=== PATIENT | male | born 1960 | race Caucasian/White ===

== ENCOUNTER → 2017-04-21 08:01 | Outpatient (CLI) | payer BC, SELFPAY ==
--- NOTE | 2017-04-21 08:07 | RAD_ITS ---
STUDY: AIR-CONTRAST UPPER GI SERIES. REASON FOR EXAM: Male, 56 years old. Dysphagia. FLUOROSCOPY TIME (if supplied): (0:37) minutes/seconds TECHNIQUE: The patient ingested barium. Multiple images of the esophagus stomach and duodenum were obtained. COMPARISON: None. FINDINGS: The esophagus is unremarkable. There is no evidence of obstruction. No mass lesion is seen. The stomach and duodenum are unremarkable. RAD/Upper GI w/BA Swallow IMPRESSION: Unremarkable air contrast upper GI series. Electronically Signed: Uriah Wick MD at 9:50 EST Tel [phone], Service support ,
== END ==
PROVIDERS: Visit Provider Surgery
DX: K20.0 Eosinophilic esophagitis (principal); R13.10 Dysphagia, unspecified
CPT/HCPCS: 74246

== ENCOUNTER 2017-05-02 06:02 | Day surgery (SDC) | payer BC, SELFPAY ==
[2017-05-02] VITALS (15 sets, daily range): BP systolic 140–166; BP diastolic 94–117; PULSE 55–80; RESP 14–18; TEMP 36.1; O2SAT 97–100; BMI 26.7
--- NOTE | 2017-05-02 | IMM_PTH ---
PATIENT: AMANDA HEWITT Jr. LOC: EN U#:[id number] AGE/SX: 56/M ROOM: RE05/02/[address]: Dr. Zafar Armstrong MD : 1960 BED: DIS: 05/02/2017 SPEC #: [id number] RECD: 05/03/17 13:32 STATUS: ANAHY RERose #: [id number] DALIA: 05/02/17 00:[address]: Zafar Armstrong DEPT: IMMUNOHISTOCHEMISTRY RECD BY: Ayaka Bailey ENTERED: 05/03/17 13:33 SP TYPE: IMMUNO OT DR: No Primary Care Phys Tissues: A - Stomach, NOS Procedures: H Pylori (initial) PHYSICIAN & INSTITUTION [place] [id number] SPECIMEN INFORMATION: Tissue Source: A ? Antral biopsy Clinical Info: Dysphagia Specimen Number: [id number] CPT code: 68581 METHODOLOGY: Deparaffinized sections of prefer/formalin-fixed tissue or PAP/DQ stained slides are incubated with monoclonal/polyclonal antibodies/oligonucleotide probes. Localization is made via biotin free immunoperoxidase method. Appropriate controls are performed and reacted as expected. Results on target cell population are indicated in the following table: RESULTS: ANTIBODY / CLONE RESULT Block A H Pylori (polyclonal) negative These tests were developed and their performance characteristics determined by [facility]. They may not have been cleared or approved by the U.S. Food and Drug Administration. The FDA has determined that such clearance or approval is not necessary. INTERPRETATION: A. Antral biopsy: Negative for Helicobacter pylori organisms. AM:lisseth 05/04/17
--- NOTE | 2017-05-02 07:45 | EGD_PTH ---
PATIENT: AMANDA HEWITT Jr. LOC: [facility] U#:[id number] AGE/SX: 56/M ROOM: RE05/02/[address]: Dr. Zafar Armstrong MD : 1960 BED: DIS: 05/02/2017 SPEC #: [id number] RECD: 05/02/17 12:41 STATUS: ANAHY MILADY #: [id number] DALIA: 05/02/17 07:[address]: Zafar Armstrong DEPT: SURGICAL PATHOLOGY RECD BY: Colton Meadows ENTERED: 05/02/17 13:53 SP TYPE: EGD BIOPSY OTHR DR: Ying Primary Care Phys Tissues: A - Gastric mucous membrane B - Duodenum, NOS C - Esophageal mucous membrane D - Esophageal mucous membrane Procedures: Special Stain Group II Surgery Specimen Level IV Alcian Blue/PAS (control) HEADER OPERATION: EGD with dilatation PRE-OP DIAGNOSIS: Dysphagia TISSUE SUBMITTED: A ? Antral biopsy, B ? Duodenal biopsy, C ? Distal esophagus biopsy, D ? Mid esophagus biopsy MICROSCOPIC DIAGNOSIS A. Gastric antrum, biopsy: Gastritis. B. Duodenum, biopsy: Minimal nonspecific chronic inflammation. C. Distal esophagus, biopsy: Fragments of benign esophageal mucosa with changes of eosinophilic esophagitis. No evidence of Walker?s specialized epithelium. D. Mid esophagus, biopsy: Changes consistent with eosinophilic esophagitis. AM:lisseth 05/03/17 COMMENT A. The results of immunohistochemistry for Helicobacter pylori will be reported separately ([id number]). B. Alcian blue/PAS stain with matched control was used in the evaluation of this case. MICROSCOPIC DESCRIPTION Slides are reviewed. A. Sections show small collections and groups of plasma cells in the mucosa. Active inflammation is not present. These findings are consistent with mild chronic gastritis. GROSS DESCRIPTION A - Received in fixative is one container labeled with the patient's name and designated gastric antrum biopsy. The specimen consists of one irregular fragment of light kay soft tissue that measures 0.2 x 0.2 x 0.1 cm. The specimen is totally submitted in one cassette. B - Received in fixative is one container labeled with the patient's name and designated duodenal biopsy. The specimen consists of one irregular fragment of light kay soft tissue that measures 0.3 x 0.2 x 0.1 cm. The specimen is totally submitted in one cassette. C - Received in fixative is one container labeled with the patient's name and designated distal esophagus biopsy. The specimen consists of multiple irregular fragments of light kay soft tissue that in aggregate measure 1 x 0.8 x 0.1 cm. The specimen is totally submitted in one cassette. D - Received in fixative is one container labeled with the patient's name and designated mid esophagus biopsy. The specimen consists of multiple irregular fragments of light kay soft tissue that in aggregate measure 0.5 x 0.2 x <0.1 cm. The specimen is totally submitted in one cassette. / AM:lisseth 05/02/17 TC:3 CPT: 92378 x4, 57522
--- NOTE | 2017-05-02 08:05 | PCM.OPRPT ---
Problem List (1) Esophageal stricture Status: Acute (2) Screening for colon cancer Status: Acute Report of Operation Date of Procedure: 05/02/17 Pre-Operative Diagnosis: History of esophageal stricture, intermittent food bolus foreign body obstruction, suspected esophageal stricture. Previous history of tubular adenoma of the colon, surveillance colonoscopy Post-Operative Diagnosis: Concentric rings of the esophagus with mid esophageal stricture, Schatzki ring, reflux esophagitis, moderate hiatal hernia suspected eosinophilic esophagitis. Grade 3 internal hemorrhoids, otherwise normal colonoscopy Surgery/Procedure Performed:: Esophagogastroduodenoscopy with duodenal and antral and distal esophageal and mid esophageal biopsies. 18 mm mid esophageal hydrostatic dilatation. 33 mm Savery over the wire dilatation. Colonoscopy Description of Surgical Findings:: Timeout and informed consent was obtained. 56-year-old gent was taken to the endoscopy suite. His oropharynx anesthetized with Cetacaine. He underwent monitored anesthesia care. Flexible gastroscope was inserted into the esophageal inlet. Proximal portion of the esophagus unremarkable. However after the first third visualization demonstrated multiple concentric rings. In the midesophagus a stricture could be visualized and was felt to be approximately 8-9 mm diameter. Could see past the stricture but could not advance the upper scope. After inspection I felt that a gentle hydrostatic dilatation of this area would be appropriate. The patient previously has had an 18 mm hydrostatic dilatation done before. I placed a 18 mm balloon tried to position that at this stricture but the balloon did not want to sit in in one position and it wanted to watermelon [id number]. I only took the balloon up to 3 esther of pressure. At that point felt that that was not being successful. Under direct gastroscopic visualization I advanced a wire pass the stricture I then utilized a 27 mm dilator and a 30 mm dilator and a 33 mm [id number] balloon Savory type dilator. There was no blood dilator in any of the times. The dilator appeared to move easily. The dilator was only advanced to 45 cm. I then replaced the upper scope. Was able to get past the mid esophageal stricture. There was an area of mucosal tear distal to that however this appeared to be only mucosal. I was able to advance the scope to 40 cm at the e.g. junction where a Schatzki ring constricting was identified. A moderate sized hiatal hernia. Advance the scope into the stomach minimal erythema noted scope advanced towards. The first and second portions of duodenum inspected this was not remarkable. Duodenal biopsy was obtained. The scope withdrawn back in the stomach antral biopsy was obtained. Scope was retroflexed the cardia was inspected not remarkable the EG junction hiatal hernia noted. The scope was placed back in in a antegrade viewing position. Antral biopsy as noted was obtained and the scope was drawn back into the distal esophagus. Distal esophageal biopsies obtained just that she starts the ring. The scope was withdrawn further midesophagus was very carefully inspected the area of the mid esophageal stricture allowed for now passage of the scope as noted there was a 2 cm long mucosal tear this was irrigated it was hemostatic and did not appear to be full-thickness. Mid esophageal biopsy was separately obtained. The scope was further withdrawn without additional abnormality. The patient was kept in left decubitus position. Digital rectal exam performed grade 3 internal hemorrhoids 2+ smooth prostate. Colonoscope was inserted and advanced through a slightly tortuous left colon nicely advanced to the transverse colon with some transabdominal pressure was nicely advanced to the cecum. Bowel prep was good. The cecum and ileocecal valve area was nicely achieved. The scope was carefully withdrawn through the ascending transverse descending and sigmoid colon with no abnormalities noted. Scope was retroflexed within the rectum anorectal verge inspected hemorrhoidal changes grade 3 internal hemorrhoids noted but no active bleeding. The procedure was completed with the patient tolerating it well. Impression concentric esophageal rings and mid esophageal stricture consists suspicious for eosinophilic esophagitis. Schatzki ring. Moderate sized hiatal hernia. Suspected minimal gastritis. Normal colonoscopy except for grade 3 internal hemorrhoids The patient's previous colonoscopy was December 29, 2010. Does have a previous history of tubular adenoma. Patient's previous upper endoscopy was same date. It will be recommended that he initiate omeprazole 40 mg daily. We will consider utilization of Flonase orally. Will refer to an secondary social studies teacher. We will await biopsy results. Next colonoscopy anticipated in 5 years because of his remote history of tubular adenoma of the colon. The observe carefully and discharged on a clear liquid diet with ongoing surgical follow-up. No primary care Zafar Armstrong M.D., F.A.C.S. The cecum was reached at 0754 and the procedure was completed at 0759 Type of Anesthesia:: MAC
[2017-05-02] MEDS: Pantoprazole Sodium 40 MG Tablet PO (09:29)
== END 2017-05-02 10:35 | disposition home or self-care (01) ==
LOC: EN 06:03 → AC 06:04
PROVIDERS: Visit Provider Surgery
PROC: 0DJD8ZZ Inspection of Lower Intestinal Tract, Via Natural or Artificial Opening Endoscopic (ICD-10-PCS; CPT 45378; principal; 2017-05-02 06:55)
DX: Z12.11 Encounter for screening for malignant neoplasm of colon (principal); K64.8 Other hemorrhoids; Z86.010 Personal history of colon polyps; K20.0 Eosinophilic esophagitis; K22.2 Esophageal obstruction; K44.9 Diaphragmatic hernia without obstruction or gangrene; K29.70 Gastritis, unspecified, without bleeding; K29.80 Duodenitis without bleeding; K21.0 Gastro-esophageal reflux disease with esophagitis
CPT/HCPCS: 43233; 43239; 45378; 88305; 88313; 88342; J7120; C1769

== ENCOUNTER → 2017-10-04 06:46 | Outpatient (CLI) | payer BC, SELFPAY ==
--- NOTE | 2017-10-04 06:57 | CT_ITS ---
STUDY: CT CHEST WITHOUT CONTRAST REASON FOR EXAM: Male, 57 years old. Difficulty swallowing RADIATION DOSAGE (If Supplied By Facility): CTDIvol = ( 14.04 ) mGy, DLP = ( 561.18 ) mGycm TECHNIQUE: Transaxial imaging was performed without the administration of intravenous contrast material. Individualized dose optimization techniques were used for this CT. COMPARISON: None. FINDINGS: : TRACHEA, THYROID, ESOPHAGUS: No tracheomalacia,stricture or wall thickening. Thyroid and esophagus are normal CARDIOVASCULAR SYSTEM: The thoracic aorta is grossly within normal limits. The pulmonary trunk and the left and right pulmonary arteries are also grossly within normal limits. The heart is not enlarged. LALA AND LYMPH NODES: No hilar masses and no mediastinal, hilar, axillary or supraclavicular adenopathy LUNGS, LOW-ATTENUATION: No traction bronchiectasis, honeycombing,emphysema, lung cysts or cavitations LUNGS, HIGH ATTENUATION: No nodules/masses, ground glass opacities/consolidations or increased interstitial markings LUNGS, MOSAIC/CRAZY PAVING: Not evident PLEURA AND CHEST WALL: No plural effusions, pneumothoraces,rib fractures or any osteolytic/osteoblastic changes . The soft tissue chest wall including the breasts are normal UPPER ABDOMEN: Unremarkable . CT/Chest without Contrast IMPRESSION: No acute findings in the lungs. The esophagus is normal. Electronically Signed: Vince Silverio, at 7:50 EDT Tel , Service support ,
== END ==
DX: R22.2 Localized swelling, mass and lump, trunk (principal)
CPT/HCPCS: 71250

== ENCOUNTER → 2018-02-02 11:54 | Outpatient (CLI) | payer BC, SELFPAY ==
[2018-02-05 03:06] LABS: Almond 0.21 kU/L (Class 0/I); Banana <0.10 kU/L (Class 0); Barley, Whole Grain 0.67 kU/L (Class II); Beef <0.10 kU/L (Class 0); Carrot <0.10 kU/L (Class 0); Casein <0.10 kU/L (Class 0); Cashew <0.10 kU/L (Class 0); Celery <0.10 kU/L (Class 0); Cheddar Cheese <0.10 kU/L (Class 0); Chicken <0.10 kU/L (Class 0); Chocolate <0.10 kU/L (Class 0); Clam <0.10 kU/L (Class 0); Codfish <0.10 kU/L (Class 0); Corn 0.19 kU/L (Class 0/I); Crab <0.10 kU/L (Class 0); Egg, White <0.10 kU/L (Class 0); Egg, Whole <0.10 kU/L (Class 0); Egg, Yolk <0.10 kU/L (Class 0); Garlic <0.10 kU/L (Class 0); Hazelnut/Filbert <0.10 kU/L (Class 0); Lettuce <0.10 kU/L (Class 0); Lobster <0.10 kU/L (Class 0); Milk (Cow) 0.91 kU/L (Class II); Oat <0.10 kU/L (Class 0); Onion 0.14 kU/L (Class 0/I); Orange <0.10 kU/L (Class 0); Pea 0.12 kU/L (Class 0/I); Peach 0.26 kU/L (Class 0/I); Pecan <0.10 kU/L (Class 0); Pork <0.10 kU/L (Class 0); Potato, White <0.10 kU/L (Class 0); Rice <0.10 kU/L (Class 0); Salmon <0.10 kU/L (Class 0); Shrimp <0.10 kU/L (Class 0); Soybean <0.10 kU/L (Class 0); Tomato <0.10 kU/L (Class 0); Tuna <0.10 kU/L (Class 0); Walnut, (Food) 0.28 kU/L (Class 0/I); Wheat 0.54 kU/L (Class I); Yeast <0.10 kU/L (Class 0)
[2018-02-05 11:45] LABS: Apple 0.17 kU/L (Class 0/I); Lactalbumin, Alpha 1.27 kU/L (Class II); Peanut <0.10 kU/L (Class 0); Turkey <0.10 kU/L (Class 0)
== END ==
DX: K20.0 Eosinophilic esophagitis (principal)
CPT/HCPCS: 36415; 86003

== ENCOUNTER 2019-04-20 17:10 | Emergency (ER) | payer BC, OTHER, SELFPAY ==
[2019-04-20 17:11] VITALS: BP 162/106; PULSE 95; RESP 18; TEMP 36.7; O2SAT 99; BMI 27.2
--- NOTE | 2019-04-20 19:14 | ED.VISSUMM ---
- ER Visit Summary Date of Service: 04/20/19 Chief Complaint: Left forehead laceration History of Present Illness: The patient is a 58 M was turned down the house when he was breaking and pulling off a 2 x 4 it struck him in the left side of his face just above his left eyebrow. Causing laceration. This occurred in the last 3 hours. States his tetanus is not up-to-date and will need to be given. Denies any LOC. He is on no blood thinners. He was not knocked out. Denies any other complaints. Physical Examination: Middle-aged male no acute distress vital signs stable afebrile. H EENT exam dry reactive eyes motions are intact. Scalp nontender. He is a laceration is approximately 4 cm irregular shaped above his left eyebrow. Itself will need to be repaired. Involves the skin and subcu tissue. There is no significant current bleeding at this time. There is no foreign body noted. C-spine nontender. Lungs clear to auscultation. Heart regular rhythm. Chest were nontender. Abdomen soft nontender. Patient is moving all 4 extremities. Neurovascular intact. Neurologically is awake alert with no focal motor deficits. GCS of 15. Test Results: None Emergency Department Course and Treatment: Procedure note left forehead laceration with ER repair. Locally anesthetized with lidocaine. Cleaned with Shur-Clens. Washed and irrigated. Explored. Closed using 5-0 simple interrupted suture. Proper hemostasis wound closure obtained. Patient was instructed wound care. Repaired using 5 simple erupted 5-0 Ethilon sutures. Proper hemostasis wound closure obtained. I did not see any signs of foreign body. Treatment Plan: Ice to the area. Keep it clean. Antibiotic ointment daily. Tylenol Motrin for pain. Suture removal in 7 days. Return if any signs of infection. Disposition: Discharge Impression: Left forehead laceration of 4 cm with ER repair This note was generated with [employer] dictation software. It may contain incorrect words, spelling, and punctuation that were not noted in review of the chart prior to signing ED Disposition - Plan for ED Patient: Disposition: Home or Assisted Living Instructions: LACERATION, Face (Suture or Tape) Referrals: Judah Castaneda, [Primary Care Provider] - 7 Days for suture removal Additional Instructions: Ice to the area. Keep it clean. Apply antibiotic ointment daily. Suture removal in 7 days. Your tetanus is up-to-date and should be good now for 10 years.
--- NOTE | 2019-04-20 19:16 | ED.DEP ---
ED Disposition - Plan for ED Patient: Disposition: Home or Assisted Living Instructions: LACERATION, Face (Suture or Tape) Referrals: Judah Castaneda, [Primary Care Provider] - 7 Days for suture removal Additional Instructions: Ice to the area. Keep it clean. Apply antibiotic ointment daily. Suture removal in 7 days. Your tetanus is up-to-date and should be good now for 10 years.
[2019-04-20] MEDS: Diphth,Pertuss(Acell),Tet Vac 0.5 ML Vial IM (19:26)
[2019-04-20 20:16] VITALS: BP 142/92; PULSE 90; RESP 16; O2SAT 98
== END 2019-04-20 20:17 | disposition home or self-care (01) ==
PROVIDERS: Emergency Provider Emergency Medicine; PCP Student in an Organized Health Care Education/Training Program
DX: S01.81XA Laceration without foreign body of other part of head, initial encounter (principal); R40.2410 Glasgow coma scale score 13-15, unspecified time; W22.8XXA Striking against or struck by other objects, initial encounter; Y93.9 Activity, unspecified; Y92.9 Unspecified place or not applicable
CPT/HCPCS: 12013; 90471; 90715; 99284

== ENCOUNTER → 2019-05-27 09:40 | Outpatient (CLI) | payer BC, OTHER, SELFPAY ==
--- NOTE | 2019-05-27 09:52 | RAD_ITS ---
STUDY: X-RAY - ESOPHAGUS (BARIUM SWALLOW) WITH FLUOROSCOPY REASON FOR EXAM: Male, 58 years old. DYSPHAGIA, REFLUX; -- PATIENT STATES HAS HIATAL HERNIA; -- H/O ESOPHAGEAL DILATION TECHNIQUE: 23 view(s) of the esophagus were obtained following swallowing of barium. FLUOROSCOPY TIME (if supplied): (0:42) minutes/seconds COMPARISON: Comparison is made with prior study December 21, 2010. FINDINGS: There is no demonstrated esophageal foreign body. There is no demonstrated stricture or mucosal abnormality. Normal gastroesophageal junction, without a demonstrated hiatal hernia. The patient ingested a 12 mm tablet of barium. The tablet is trapped in the proximal portion of the esophagus. There is atherosclerotic tortuosity of the aortic arch and descending thoracic aorta. Normal visualized pulmonary parenchyma. Normal visualized osseous structures of the thorax. RAD/Esophagus Single Contrast IMPRESSION: The ingested 12 mm tablet at bedtime is trapped in the proximal portion of the esophagus. Electronically Signed: Uriah Wick, at 15:12 EDT , Service support ,
== END ==
PROVIDERS: PCP Student in an Organized Health Care Education/Training Program
DX: R13.10 Dysphagia, unspecified (principal)
CPT/HCPCS: 74220

== ENCOUNTER → 2020-12-11 07:36 | Outpatient (CLI) | payer BC, OTHER, SELFPAY ==
[2020-12-11 08:02] LABS: Hematocrit 33.4 % (40-54); Hemoglobin 9.2 g/dL (13.0-16.5)
[2020-12-14] VITALS (8 sets, daily range): BP systolic 125–141; BP diastolic 77–89; PULSE 78–90; RESP 16; TEMP 35.8–36.7; O2SAT 98–100; BMI 25.7
== END ==
PROVIDERS: PCP Student in an Organized Health Care Education/Training Program; Referring Provider Nurse Practitioner Family; Visit Provider Nurse Practitioner Family
DX: D64.9 Anemia, unspecified (principal)
CPT/HCPCS: 36415; 36430; 85014; 85018; 86850; 86900; 86901; 86920; 86921; 86922; J7040; P9016; A4216

== ENCOUNTER → 2021-01-15 09:34 | Outpatient (CLI) | payer BC, OTHER, SELFPAY ==
[2021-01-15 09:54] LABS: Erythrocyte Sedimentation Rate 31 mm/hr (0-20)
[2021-01-15 09:55] LABS: Hematocrit 37.1 % (40-54); Hemoglobin 10.9 g/dL (13.0-16.5); Mean Corp Hgb Conc 29.4 g/dL (32-36); Mean Corpuscular Hgb 19.6 pg (27.0-32.0); Mean Corpuscular Volume 66.7 fL (80-94); Mean Platelet Vol. 9.3 fl (6.2-12.0); POSITIVE MORPHOLOGY YES; Platelet Count 265 K/mm3 (150-450); RBC Distribution Width CV 22.4 % (11.6-14.6); RBC Distribution Width SD 51.7 fl (35.1-43.9); Red Blood Count 5.56 M/mm3 (4.6-6.2); White Blood Count 4.6 K/mm3 (4.4-11.0)
[2021-01-15 09:56] LABS: International Normalized Ratio 1.1; Prothrombin Time (Protime)PT. 13.1 SECONDS (11.7-14.9); Scan Indicated on CBC? Y/N YES- FLAGS NOTED
[2021-01-15 10:18] LABS: ALB/GLOB Ratio 0.9 RATIO (0.9-2.4); AST(SGOT) 19 U/L (15-37); Alanine Aminotransfer ALT/SGPT 25 U/L (16-61); Albumin, Serum 3.8 g/dL (3.2-5.0); Alkaline Phosphatase 89 U/L (45-117); Anion Gap 5 (5-15); BUN 11 mg/dL (7-18); BUN/Creat Ratio 11.2 RATIO (10-20); Calcium,Total 9.4 mg/dL (8.5-10.1); Chloride 104 mmol/L (98-107); Creatinine, Serum 0.98 mg/dL (0.70-1.30); EST Glomerular Filtration Rate 82 mL/min (>60); Est Glom Filt Rate - Afr Amer 99 mL/min (>60); Globulin 4.2 g/dL (2.2-4.2); Glucose 102 mg/dL (74-106); Potassium 4.1 mmol/L (3.5-5.1); Sodium Level 138 mmol/L (136-145)
== END ==
PROVIDERS: PCP Student in an Organized Health Care Education/Training Program; Referring Provider Surgery; Visit Provider Surgery
DX: Z01.818 Encounter for other preprocedural examination (principal); D64.9 Anemia, unspecified; I73.9 Peripheral vascular disease, unspecified; I74.3 Embolism and thrombosis of arteries of the lower extremities
CPT/HCPCS: 36415; 80053; 85027; 85610; 85652

== ENCOUNTER 2021-01-22 08:24 | Day surgery (SDC) | payer BC, OTHER, SELFPAY ==
--- NOTE | 2021-01-22 | GASB_PTH ---
PATIENT: AMANDA HEWITT Jr. LOC: EN U#:[id number] AGE/SX: 60/M ROOM: RE01/22/[address]: Dr. Zafar Armstrong MD : 1960 BED: DIS: 01/22/2021 SPEC #: [id number] RECD: 01/22/21 13:34 STATUS: ANAHY RERose #: [id number] DALIA: 01/22/21 00:[address]: Zafar Armstrong DEPT: SURGICAL PATHOLOGY RECD BY: Jose Downey ENTERED: 01/22/21 13:35 SP TYPE: Gastric Bx OTHR DR: Dr. Judah Castaneda DO Tissues: A - Gastric mucous membrane B - Esophageal mucous membrane C - Esophageal mucous membrane Procedures: Surgery Specimen Level IV HEADER OPERATION: Colonoscopy, EGD ([facility] [place] PRE-OP DIAGNOSIS: Blue toe syndrome TISSUE SUBMITTED: A - Antrum biopsy for H. pylori and path, B - Distal esophagus biopsy, C - Mid esophagus biopsy MICROSCOPIC DIAGNOSIS A. Antrum, biopsy: Mild to moderate gastritis. See microscopic description and comment. B. Distal esophagus, biopsy: Fragments of gastroesophageal mucosa with moderate chronic inflammation. Intestinal metaplasia (goblet cell metaplasia) not identified. Focal changes consistent with eosinophilic esophagitis. See comment. C. Mid esophagus, biopsy: Fragments of squamous epithelium with changes suggestive of eosinophilic esophagitis. See comment. SJ:rg 01/25/2021 COMMENT A. The results of immunohistochemistry for Helicobacter pylori will be reported separately ([id number]). B. Increased number of eosinophils (~20 per high power field) are noted consistent with eosinophilic esophagitis. C. Increased number of eosinophils (~15 per high power field) are noted suggestive of eosinophilic esophagitis. MICROSCOPIC DESCRIPTION Slides are reviewed. A. The specimen shows fragments of gastric mucosa with chronic inflammatory cell infiltrates in the lamina propria consisting of lymphocytes and plasma cells, consistent with mild to moderate chronic gastritis. GROSS DESCRIPTION A - Received in fixative is one container labeled with the patient's name and designated antrum biopsy. The specimen consists of one irregular fragment of light kay soft tissue that measures 0.3 x 0.3 x 0.1 cm. The specimen is totally submitted in one cassette. B - Received in fixative is one container labeled with the patient's name and designated distal esophagus biopsy. The specimen consists of multiple irregular fragments of light kay soft tissue that in aggregate measure 1.2 x 0.2 x 0.1 cm. The specimen is totally submitted in one cassette. C - Received in fixative is one container labeled with the patient's name and designated mid esophagus biopsy. The specimen consists of two irregular fragments of light kay soft tissue that in aggregate measure 0.6 x 0.3 x 0.1 cm. The specimen is totally submitted in one cassette. / SJ:rg 01/22/21 TC:3 CPT: 98237 x3
[2021-01-22 08:47] VITALS: BP 159/93; PULSE 71; RESP 16; TEMP 36.4; O2SAT 100; BMI 26.4
--- NOTE | 2021-01-22 08:48 | PCM.HP.BLA ---
History and Physical Date of Admission: 01/22/21 Intake Visit Reasons: PVR Chief Complaint: PVR [employer] Operator Required: No Is patient in pain?: No Allergies lactose Allergy (Intermediate, Verified 01/15/21 08:57) throat tightening Medications omeprazole 40 mg PO DAILY #90 capsule. 05/02/17 [Rx Confirmed 01/15/21] [facility] Medical History (Updated 01/15/21 @ 14:[address] Zafar Armstrong MD) Anemia Claudication in peripheral vascular disease EE (eosinophilic esophagitis) Embolic disease of toe GERD (gastroesophageal reflux disease) History of esophageal stricture Surgical History History of esophagogastroduodenoscopy (EGD) S/P colonoscopy S/P dilatation of esophageal stricture Family History Mother No problems noted. Social History (Updated 01/15/21 @ 08:55 by Ingrid Frausto) Smoking Status: Never smoker alcohol intake: current HPI HPI HPI: AMANDA HEWITT, is a 60 M who presents to the office today for consultation regarding peripheral arterial occlusive disease. On January 01, 2021 at [facility] he had PVRs performed. The right DP and PT ABIs were 1.18 and 0.48. The right dorsalis pedis was triphasic while the posterior tibialis this was monophasic. The ankle PVR waveforms were normal. The digital waveforms severely dampened. The left DP and PT ankle-brachial index was 1.07 and 1.03 respectively with triphasic left dorsalis pedis and posterior tibialis Doppler waveforms. PVRs of the left ankle were normal. Normal toe brachial index left leg. The conclusion was that the patient had distal small vessel disease of the right foot. The patient is referred by Dr. Judah Castaneda for findings suspicious for blue toe syndrome right foot. A written copy of my surgical consult recommendations will return to her I have assisted him in the past May 02 with an upper endoscopy diagnosing eosinophilic esophagitis with hydrostatic balloon and then savory style balloon dilatation to 33 [place] The patient is complaining of a bluish discoloration to the right great toe sometimes white. The first 3 digits of the right foot behave in this fashion. He has numbness. This is been ongoing for at least a month. He is not on any anticoagulants. It is of note that November he was noted to be anemic with a hemoglobin of approximately 8 and he received 2 units of packed cells. His most recent hemoglobin is 10.2. Etiology to the anemia has not been determined. He is still awaiting scheduling for endoscopy. He has noted occasional red and dark stools. He thinks his last colonoscopy was approximately 2019. I have assisted him in the past with an upper endoscopy diagnosing eosinophilic esophagitis. He then has had some assistance in [place] as well as what sounds like [employer]. For the last 2 years he states he has not had an upper endoscopy. He states he has not had an acute food bolus obstruction within the very recent past. He states that the right foot problem was sudden onset a month ago. He states that he had some temporary numbness of the left upper arm and then on a separate occasion some cramping of bilateral calves. There was no trauma associated with it. He is not on any anticoagulants. He is not on any statin medications. He claims that what he knows of is that his cholesterol levels previously are okay. He does not use tobacco. He did use tobacco but that was remote. ROS General General: No weight change, appetite, fatigue, colon cancer, breast cancer or weakness HEENT HEENT: No difficulty swallowing, eye injury, eye surgery, swollen glands or hoarseness Endo Endocrine: No thyroid disease, diabetes mellitus, thyroid cancer, Hair loss, heat intolerance or cold intolerance Skin Skin: No rash or changing moles Breast Breast: No left breast lump, right breast lump, nipple discharge, breast pain, abnormal mammogram, abnormal US or breast enlargement Musc Musculoskeletal: No back problems, arthritis, rheumatoid arthritis, gout or joint pain Cardio Cardiovascular: No murmur, pacemaker, heart disease, atrial fibrillation, high blood pressure, heart attack, heart stent, palpitations, shortness of breat with exertion or chest pain Psych Psychiatric: No depression, anxiety or hearing voices Resp Respiratory: No shortness of breath, No sleep apnea, No cough, No COPD, No asthma, No emphysema and No wheezing Gastro Gastrointestinal: No abdominal pain, No nausea or vomiting, No diarrhea, No constipation, Yes blood in stool, No acid reflux, No hemorrhoids, No ulcers, No gallbladder problem and No black,tarry stools Segun Hematologic: No blood thinners, No blood disorders, No bleeding, Yes anemia and No blood clots Neuro Neurologic: No system reviewed and no additional complaints, except as documented, No as per HPI, No abnormal gait, No abnormal hearing, No abnormal movements, No abnormal speech, No behavioral changes, No burning sensations, No confusion, No convulsions, No disequilibrium, No dizziness, No localized weakness, No frequent falls, No headache(s), No lack of coordination, No loss of vision, No memory loss, Yes numbness, No other visual disturbances, No radicular pain, No restless legs, No sensory deficit, No syncope, Yes tingling, No tremor(s), No weakness and No other Exam Const General: cooperative, healthy appearing, comfortable and no acute distress Nutritional Appearance: average body habitus Orientation: alert and awake [facility] Head: normal to inspection Eyes General: appearance normal, both eyes and all related structures Neck Neck: normal visual inspection Chest Chest palpation & inspection: normal inspection of the chest Resp Effort & Inspection: normal respiratory effort Auscultation: clear to auscultation bilaterally Cardio Rate: regular rate Rhythm: regular rhythm Other: Bilateral radials 3+. Bilateral brachials 3+. Carotids are 3+ bilateral. No carotid bruits Bilateral femorals 3+. Bilateral popliteals 3+. Right DP and PT 0 Left DP 3+. Left PT 2+ GI Palpation: soft and no hepatosplenomegaly Auscultation: normal bowel sounds Other: Not pulsatile or expansile Musc Cervical Spine: normal cervical lordosis Skin General: no rashes or lesions noted Neuro General: patient alert and patient awake Other: Decreased light touch right great toe. Extrem Other: Right great toe is cyanotic bluish in discoloration, diminished light touch.. Venous filling is noted to the right lower extremity. The right foot does have good pink coloration and warmth. I cannot palpate right DP or PT vessels. There is no gross tenderness. No ulcerations. Psych Appearance: grossly normal Assessment and Plan Assessment and Plan (1) Blue toe syndrome: Status: Acute Qualifiers: Laterality: right Qualified Code(s): I75.021 - Atheroembolism of right lower extremity Plan - Dr. Zafar Armstrong MD: Findings are consistent with blue toe syndrome right foot. Source of emboli not determined however he seems to have symmetric pulses down to the popliteal level. I am not able to palpate right DP or PT pulses. This would be suspicious for more proximal embolization. I cannot palpate an abdominal aortic aneurysm. I recommend PA lateral chest x-ray looking for aortic dilatation. Recommend aortic duplex exam looking for abdominal aortic aneurysm The patient is notably anemic and the etiology has not been determined. I cannot initiate antiplatelet agents until a potential source for blood loss is possibly identified. The patient does have a history of eosinophilic esophagitis and has had several dilatations. He states that currently he is not having trouble with swallowing food. I have proposed for him a esophagogastroduodenoscopy. I would only plan dilatation enough to get the scope to advance in order to complete a inspection and he is aware of this. He is well aware of the increased risk of esophageal disruption with dilatation procedures. I propose at the same setting a colonoscopy with possible biopsy or polypectomy as indicated. The patient describes a reddish darkish discoloration to his stool. Once a potential source of blood loss is hopefully identified then consideration for proceeding with a abdominal pelvic right lower extremity arteriogram. I would anticipate retrograde approach via the left common femoral artery. The patient is aware that I would be anticipating hopeful endovascular intervention but would have to be able to heparinize him at that situation and initiate appropriate post procedural anticoagulation. At this point with his anemia and history of blood transfusion I do not feel comfortable proceeding with that. This consultation became more complex than initially identified. He has had an opportunity to ask if questions answered. At this point he is very much interested in expediting diagnostic and treatment programs. He would like to have his endoscopy performed this coming week so that we can expedite his vascular intervention. We will assist with his care. I appreciate the opportunity of assisting with the surgical management Copy: Dr. Judah Castaneda I have re-examined the patient. There are no clinical changes since date of exam. Zafar Armstrong M.D., F.A.C.S.
[2021-01-22] MEDS: Lactated Ringers 1,000 ML 100 ML IV (08:54)
--- NOTE | 2021-01-22 09:15 | IMM_PTH ---
PATIENT: AMANDA HEWITT Jr. LOC: EN U#:[id number] AGE/SX: 60/M ROOM: RE01/22/[address]: Dr. Zafar Armstrong MD : 1960 BED: DIS: 01/22/2021 SPEC #: [id number] RECD: 01/22/21 15:18 STATUS: ANAHY REQ #: [id number] DALIA: 01/22/21 09:[address]: Zafar Armstrong DEPT: IMMUNOHISTOCHEMISTRY RECD BY: Ayaka Bailey ENTERED: 01/22/21 15:19 SP TYPE: IMMUNO OTHR DR: Dr. Judah Castaneda, DO Tissues: A - Stomach, NOS Procedures: H Pylori (initial) PHYSICIAN & INSTITUTION [place] [id number] SPECIMEN INFORMATION: Tissue Source: A ? Antrum biopsy Clinical Info: Blue toe syndrome Specimen Number: [id number] CPT code: 17757 METHODOLOGY: Deparaffinized sections of prefer/formalin-fixed tissue or PAP/DQ stained slides are incubated with monoclonal/polyclonal antibodies/oligonucleotide probes. Localization is made via biotin free immunoperoxidase method. Appropriate controls are performed and reacted as expected. Results on target cell population are indicated in the following table: RESULTS: ANTIBODY / CLONE RESULT Block A H Pylori (polyclonal) negative These tests were developed and their performance characteristics determined by [facility]. They may not have been cleared or approved by the U.S. Food and Drug Administration. The FDA has determined that such clearance or approval is not necessary. INTERPRETATION: A. Antrum biopsy: Negative for Helicobacter pylori organisms. KAROL:lisseth 01/25/2021
--- NOTE | 2021-01-22 09:46 | OP.EGD_ITS ---
Patient Name: Tristin Kline Procedure Date: 01/22/2021 9:31 AM Date of : 1960 Age: 60 Procedure: Upper GI endoscopy Indications: Iron deficiency anemia secondary to chronic blood loss Providers: Zafar Armstrong MD Medicines: See the Anesthesia note for documentation of the administered medications Complications: No immediate complications. Procedure: Pre-Anesthesia Assessment: - Prior to the procedure, a History and Physical was performed, and patient medications and allergies were reviewed. The patient's tolerance of previous anesthesia was also reviewed. The risks and benefits of the procedure and the sedation options and risks were discussed with the patient. All questions were answered, and informed consent was obtained. Prior Anticoagulants: The patient has taken no previous anticoagulant or antiplatelet agents. ASA Grade Assessment: II - A patient with mild systemic disease. After reviewing the risks and benefits, the patient was deemed in satisfactory condition to undergo the procedure. After obtaining informed consent, the endoscope was passed under direct vision. Throughout the procedure, the patient's blood pressure, pulse, and oxygen saturations were monitored continuously. The Endoscope was introduced through the mouth, and advanced to the second part of duodenum. The upper GI endoscopy was accomplished without difficulty. The patient tolerated the procedure well. Scope In: 9:37:31 AM Scope Out: 9:43:29 AM Total Procedure Duration Time 0 hours 5 minutes 58 seconds Findings: LA Grade A (one or more mucosal breaks less than 5 mm, not extending between tops of 2 mucosal folds) esophagitis with no bleeding was found 41 cm from the incisors. Biopsies were taken with a cold forceps for histology. The middle third of the esophagus was normal. Biopsies were taken with a cold forceps for histology. A small hiatal hernia was present. Diffuse mildly erythematous mucosa without bleeding was found in the gastric antrum. Biopsies were taken with a cold forceps for histology. Diffuse mildly erythematous mucosa without active bleeding and with no stigmata of bleeding was found in the duodenal bulb. Biopsies were taken with a cold forceps for histology. Impression: - LA Grade A reflux esophagitis. Biopsied. - Normal middle third of esophagus. Biopsied. - Small hiatal hernia. - Erythematous mucosa in the antrum. Biopsied. - Erythematous duodenopathy. Biopsied. Recommendation: - Discharge patient to home. - Resume previous diet. - Continue present medications. - Telephone my office for pathology results in 1 week. Procedure Code(s): --- Professional --- 01081, Esophagogastroduodenoscopy, flexible, transoral; with biopsy, single or multiple Diagnosis Code(s): --- Professional --- K21.0, Gastro-esophageal reflux disease with esophagitis K44.9, Diaphragmatic hernia without obstruction or gangrene K31.89, Other diseases of stomach and duodenum D50.0, Iron deficiency anemia secondary to blood loss (chronic) CPT copyright 2017 [employer]. All rights reserved. The codes documented in this report are preliminary and upon plastic tool maker review may be revised to meet current compliance requirements. Zafar Armstrong MD 01/22/2021 9:46:19 AM This report has been signed electronically. Number of Addenda: 0 Note Initiated On: 01/22/2021 9:31 AM
--- NOTE | 2021-01-22 09:47 | OP.CCLET_ITS ---
01/22/2021 Judah Castaneda [address] [place] [address] Re : Upper GI endoscopy procedure for Tristin Kline Dear Dr. Castaneda This procedure was performed on Friday, January 22, 2021. My impressions and recommendations are as follows: Impressions : - LA Grade A reflux esophagitis. Biopsied. - Normal middle third of esophagus. Biopsied. - Small hiatal hernia. - Erythematous mucosa in the antrum. Biopsied. - Erythematous duodenopathy. Biopsied. Recommendations : - Discharge patient to home. - Resume previous diet. - Continue present medications. - Telephone my office for pathology results in 1 week. My findings are described in the full procedure note, which is enclosed. If I can be of further assistance, please feel free to contact me at Doctor phone number(s): Work: . Sincerely, Zafar Armstrong MD 01/22/2021 9:46:19 AM This report has been signed electronically.
[2021-01-22 10:05] VITALS: BP 129/84; BP 159/93; PULSE 78; RESP 16; TEMP 36.1; O2SAT 97
--- NOTE | 2021-01-22 10:05 | OP.COLON_ITS ---
Patient Name: Tristin Kline Procedure Date: 01/22/2021 9:44 AM Date of : 1960 Age: 60 Procedure: Colonoscopy Indications: Iron deficiency anemia secondary to chronic blood loss Providers: Zafar Armstrong MD Medicines: See the Anesthesia note for documentation of the administered medications Patient Profile: Last Colonoscopy: none. The patient's first colonoscopy is today. Complications: No immediate complications. Procedure: Pre-Anesthesia Assessment: - Prior to the procedure, a History and Physical was performed, and patient medications and allergies were reviewed. The patient's tolerance of previous anesthesia was also reviewed. The risks and benefits of the procedure and the sedation options and risks were discussed with the patient. All questions were answered, and informed consent was obtained. Prior Anticoagulants: The patient has taken no previous anticoagulant or antiplatelet agents. ASA Grade Assessment: II - A patient with mild systemic disease. After reviewing the risks and benefits, the patient was deemed in satisfactory condition to undergo the procedure. After I obtained informed consent, the scope was passed under direct vision. Throughout the procedure, the patient's blood pressure, pulse, and oxygen saturations were monitored continuously. The colonoscope was introduced through the anus and advanced to the cecum, identified by appendiceal orifice and ileocecal valve. The colonoscopy was performed without difficulty. The patient tolerated the procedure well. The quality of the bowel preparation was good. The ileocecal valve and the appendiceal orifice were photographed. Scope In: 9:48:44 AM Scope Withdrawal Time 0 hours 7 minutes 10 seconds Scope Out: 10:00:58 AM Total Procedure Duration Time 0 hours 12 minutes 14 seconds Findings: The digital rectal exam findings include non-thrombosed external hemorrhoids, non-thrombosed internal hemorrhoids and internal hemorrhoids that prolapse with straining, but require manual replacement into the anal canal (Grade III). Pertinent negatives include normal prostate (size, shape, and consistency). Scattered diverticula were found in the sigmoid colon. The exam was otherwise without abnormality. Impression: - Non-thrombosed external hemorrhoids, non-thrombosed internal hemorrhoids and internal hemorrhoids that prolapse with straining, but require manual replacement into the anal canal (Grade III) found on digital rectal exam. Pedunculated Internal hemorrhoid - Diverticulosis in the sigmoid colon. - The examination was otherwise normal. - No specimens collected. Recommendation: - Discharge patient to home. - Resume previous diet. - Continue present medications. - Repeat colonoscopy in 10 years for screening purposes. Procedure Code(s): --- Professional --- 66253, Colonoscopy, flexible; diagnostic, including collection of specimen(s) by brushing or washing, when performed (separate procedure) Diagnosis Code(s): --- Professional --- K64.2, Third degree hemorrhoids K64.4, Residual hemorrhoidal skin tags D50.0, Iron deficiency anemia secondary to blood loss (chronic) K57.30, Diverticulosis of large intestine without perforation or abscess without bleeding CPT copyright 2017 [employer]. All rights reserved. The codes documented in this report are preliminary and upon printed circuit board pcb designer review may be revised to meet current compliance requirements. Zafar Armstrong MD 01/22/2021 10:05:23 AM This report has been signed electronically. Number of Addenda: 1 Note Initiated On: 01/22/2021 9:44 AM Addendum Number: 1 Addendum Date: 01/25/2021 5:46:48 AM Based upon further information of the patient I suspect that his degree of internal hemorrhoids correlates with at least a component of his anemia. Pending results of his lower extremity arterial exam and treatment he may be a candidate for a future surgical hemorrhoidectomy of his internal hemorrhoids. Zafar Armstrong M.D., F.A.C.S. Zafar Armstrong MD 01/25/2021 5:47:34 AM This report has been signed electronically.
--- NOTE | 2021-01-22 10:06 | OP.CCLET_ITS ---
01/25/2021 Judah Castaneda [address] [place] [address] Re : Colonoscopy procedure for Tristin Marielex Dear Dr. Castaneda This procedure was performed on Friday, January 22, 2021. My impressions and recommendations are as follows: Impressions : - Non-thrombosed external hemorrhoids, non-thrombosed internal hemorrhoids and internal hemorrhoids that prolapse with straining, but require manual replacement into the anal canal (Grade III) found on digital rectal exam. Pedunculated Internal hemorrhoid - Diverticulosis in the sigmoid colon. - The examination was otherwise normal. - No specimens collected. Recommendations : - Discharge patient to home. - Resume previous diet. - Continue present medications. - Repeat colonoscopy in 10 years for screening purposes. My findings are described in the full procedure note, which is enclosed. If I can be of further assistance, please feel free to contact me at Doctor phone number(s): Work: . Sincerely, Zafar Armstrong MD 01/22/2021 10:05:23 AM This report has been signed electronically.
[2021-01-22 10:10] VITALS: BP 125/85; BP 159/93; PULSE 74; RESP 16; O2SAT 97
[2021-01-22 10:15] VITALS: BP 125/84; BP 159/93; PULSE 72; RESP 16; O2SAT 98
[2021-01-22 10:20] VITALS: BP 128/83; BP 159/93; PULSE 79; RESP 16; TEMP 36.3; O2SAT 99
[2021-01-22 10:31] VITALS: BP 159/93
== END 2021-01-22 10:41 ==
LOC: EN 08:25 → AC 08:25
PROVIDERS: PCP Student in an Organized Health Care Education/Training Program; Referring Provider Surgery; Visit Provider Surgery
PROC: 0DJD8ZZ Inspection of Lower Intestinal Tract, Via Natural or Artificial Opening Endoscopic (ICD-10-PCS; CPT 45378; principal; 2021-01-22 09:10)
DX: K29.70 Gastritis, unspecified, without bleeding (principal); K20.0 Eosinophilic esophagitis; K21.9 Gastro-esophageal reflux disease without esophagitis; K44.9 Diaphragmatic hernia without obstruction or gangrene; D50.0 Iron deficiency anemia secondary to blood loss (chronic); K57.30 Diverticulosis of large intestine without perforation or abscess without bleeding; K64.2 Third degree hemorrhoids; K64.4 Residual hemorrhoidal skin tags; I75.021 Atheroembolism of right lower extremity
CPT/HCPCS: 43239; 45378; 87426; 88305; 88342; C9803; J7120; J2405

== ENCOUNTER 2021-01-25 08:52 | Day surgery (SDC) | payer BC, OTHER, SELFPAY ==
[2021-01-22 12:22] VITALS: BMI 27.7
--- NOTE | 2021-01-25 08:28 | PCM.HP.BLA ---
History and Physical Date of Admission: 01/25/21 Intake Visit Reasons: PVR Chief Complaint: PVR Final Dressing Cutter Required: No Is patient in pain?: No Allergies lactose Allergy (Intermediate, Verified 01/15/21 08:57) throat tightening Medications omeprazole 40 mg PO DAILY #90 capsule. 05/02/17 [Rx Confirmed 01/15/21] ON LICENSE OF [facility] Medical History (Updated 01/15/21 @ 14:[address] Zafar Armstrong MD) Anemia Claudication in peripheral vascular disease EE (eosinophilic esophagitis) Embolic disease of toe GERD (gastroesophageal reflux disease) History of esophageal stricture Surgical History History of esophagogastroduodenoscopy (EGD) S/P colonoscopy S/P dilatation of esophageal stricture Family History Mother No problems noted. Social History (Updated 01/15/21 @ 08:55 by Ingrid Frausto) Smoking Status: Never smoker alcohol intake: current HPI HPI HPI: AMANDA HEWITT, is a 60 M who presents to the office today for consultation regarding peripheral arterial occlusive disease. On January 01, 2021 at [facility] he had PVRs performed. The right DP and PT ABIs were 1.18 and 0.48. The right dorsalis pedis was triphasic while the posterior tibialis this was monophasic. The ankle PVR waveforms were normal. The digital waveforms severely dampened. The left DP and PT ankle-brachial index was 1.07 and 1.03 respectively with triphasic left dorsalis pedis and posterior tibialis Doppler waveforms. PVRs of the left ankle were normal. Normal toe brachial index left leg. The conclusion was that the patient had distal small vessel disease of the right foot. The patient is referred by Dr. Judah Castaneda for findings suspicious for blue toe syndrome right foot. A written copy of my surgical consult recommendations will return to her I have assisted him in the past May 02 with an upper endoscopy diagnosing eosinophilic esophagitis with hydrostatic balloon and then savory style balloon dilatation to 33 [place] The patient is complaining of a bluish discoloration to the right great toe sometimes white. The first 3 digits of the right foot behave in this fashion. He has numbness. This is been ongoing for at least a month. He is not on any anticoagulants. It is of note that November he was noted to be anemic with a hemoglobin of approximately 8 and he received 2 units of packed cells. His most recent hemoglobin is 10.2. Etiology to the anemia has not been determined. He is still awaiting scheduling for endoscopy. He has noted occasional red and dark stools. He thinks his last colonoscopy was approximately 2019. I have assisted him in the past with an upper endoscopy diagnosing eosinophilic esophagitis. He then has had some assistance in [place] as well as what sounds like main [place]. For the last 2 years he states he has not had an upper endoscopy. He states he has not had an acute food bolus obstruction within the very recent past. He states that the right foot problem was sudden onset a month ago. He states that he had some temporary numbness of the left upper arm and then on a separate occasion some cramping of bilateral calves. There was no trauma associated with it. He is not on any anticoagulants. He is not on any statin medications. He claims that what he knows of is that his cholesterol levels previously are okay. He does not use tobacco. He did use tobacco but that was remote. ROS General General: No weight change, appetite, fatigue, colon cancer, breast cancer or weakness HEENT HEENT: No difficulty swallowing, eye injury, eye surgery, swollen glands or hoarseness Endo Endocrine: No thyroid disease, diabetes mellitus, thyroid cancer, Hair loss, heat intolerance or cold intolerance Skin Skin: No rash or changing moles Breast Breast: No left breast lump, right breast lump, nipple discharge, breast pain, abnormal mammogram, abnormal US or breast enlargement Musc Musculoskeletal: No back problems, arthritis, rheumatoid arthritis, gout or joint pain Cardio Cardiovascular: No murmur, pacemaker, heart disease, atrial fibrillation, high blood pressure, heart attack, heart stent, palpitations, shortness of breat with exertion or chest pain Psych Psychiatric: No depression, anxiety or hearing voices Resp Respiratory: No shortness of breath, No sleep apnea, No cough, No COPD, No asthma, No emphysema and No wheezing Gastro Gastrointestinal: No abdominal pain, No nausea or vomiting, No diarrhea, No constipation, Yes blood in stool, No acid reflux, No hemorrhoids, No ulcers, No gallbladder problem and No black,tarry stools Segun Hematologic: No blood thinners, No blood disorders, No bleeding, Yes anemia and No blood clots Neuro Neurologic: No system reviewed and no additional complaints, except as documented, No as per HPI, No abnormal gait, No abnormal hearing, No abnormal movements, No abnormal speech, No behavioral changes, No burning sensations, No confusion, No convulsions, No disequilibrium, No dizziness, No localized weakness, No frequent falls, No headache(s), No lack of coordination, No loss of vision, No memory loss, Yes numbness, No other visual disturbances, No radicular pain, No restless legs, No sensory deficit, No syncope, Yes tingling, No tremor(s), No weakness and No other Exam Const General: cooperative, healthy appearing, comfortable and no acute distress Nutritional Appearance: average body habitus Orientation: alert and awake [facility] Head: normal to inspection Eyes General: appearance normal, both eyes and all related structures Neck Neck: normal visual inspection Chest Chest palpation & inspection: normal inspection of the chest Resp Effort & Inspection: normal respiratory effort Auscultation: clear to auscultation bilaterally Cardio Rate: regular rate Rhythm: regular rhythm Other: Bilateral radials 3+. Bilateral brachials 3+. Carotids are 3+ bilateral. No carotid bruits Bilateral femorals 3+. Bilateral popliteals 3+. Right DP and PT 0 Left DP 3+. Left PT 2+ GI Palpation: soft and no hepatosplenomegaly Auscultation: normal bowel sounds Other: Not pulsatile or expansile Musc Cervical Spine: normal cervical lordosis Skin General: no rashes or lesions noted Neuro General: patient alert and patient awake Other: Decreased light touch right great toe. Extrem Other: Right great toe is cyanotic bluish in discoloration, diminished light touch.. Venous filling is noted to the right lower extremity. The right foot does have good pink coloration and warmth. I cannot palpate right DP or PT vessels. There is no gross tenderness. No ulcerations. Psych Appearance: grossly normal Assessment and Plan Assessment and Plan (1) Blue toe syndrome: Status: Acute Qualifiers: Laterality: right Qualified Code(s): I75.021 - Atheroembolism of right lower extremity Plan - Dr. Zafar Armstrong MD: Findings are consistent with blue toe syndrome right foot. Source of emboli not determined however he seems to have symmetric pulses down to the popliteal level. I am not able to palpate right DP or PT pulses. This would be suspicious for more proximal embolization. I cannot palpate an abdominal aortic aneurysm. I recommend PA lateral chest x-ray looking for aortic dilatation. Recommend aortic duplex exam looking for abdominal aortic aneurysm The patient is notably anemic and the etiology has not been determined. I cannot initiate antiplatelet agents until a potential source for blood loss is possibly identified. The patient does have a history of eosinophilic esophagitis and has had several dilatations. He states that currently he is not having trouble with swallowing food. I have proposed for him a esophagogastroduodenoscopy. I would only plan dilatation enough to get the scope to advance in order to complete a inspection and he is aware of this. He is well aware of the increased risk of esophageal disruption with dilatation procedures. I propose at the same setting a colonoscopy with possible biopsy or polypectomy as indicated. The patient describes a reddish darkish discoloration to his stool. Once a potential source of blood loss is hopefully identified then consideration for proceeding with a abdominal pelvic right lower extremity arteriogram. I would anticipate retrograde approach via the left common femoral artery. The patient is aware that I would be anticipating hopeful endovascular intervention but would have to be able to heparinize him at that situation and initiate appropriate post procedural anticoagulation. At this point with his anemia and history of blood transfusion I do not feel comfortable proceeding with that. This consultation became more complex than initially identified. He has had an opportunity to ask if questions answered. At this point he is very much interested in expediting diagnostic and treatment programs. He would like to have his endoscopy performed this coming week so that we can expedite his vascular intervention. We will assist with his care. I appreciate the opportunity of assisting with the surgical management Copy: Dr. Judah Castaneda I have re-examined the patient. There are no clinical changes since date of exam. Zafar Armstrong M.D., F.A.C.S No active bleeding identified on the patient's recent esophagogastroduodenoscopy and colonoscopy. He does have an unusual internal hemorrhoid which looks like was partially thrombosed. It may be that some of his anemia was secondary to hemorrhoidal bleeding. He is not bleeding at this time and we will pursue abdominal pelvic right lower extremity arteriogram with possible endovascular intervention to improve blood flow to his ischemic right great toe. He has had an opportunity to ask and have questions answered. Proceed as noted. Zafar Armstrong M.D., F.A.C.S.
--- NOTE | 2021-01-25 11:01 | CASEMGMT ---
According to the [place] website, the following are in-network tertiary facilities: [facility], [facility], [facility], [facility], [facility], [facility], [facility], and . Rosie LOPEZ CM
--- NOTE | 2021-01-25 11:46 | OP.PCM_ITS ---
Problems Associated Problem List Diagnoses (1) Blue toe syndrome: (2) Claudication in peripheral vascular disease: Report of Operation Date of Procedure: 01/25/21 Pre-Operative Diagnosis: Suspected blue toe syndrome embolic ischemic event right lower extremity foot. Suspected GI blood loss anemia Post-Operative Diagnosis: Occluded right posterior tibial and peroneal arteries. Proximal right anterior tibial dissection with 50% luminal narrowing. Occlusion right distal third anterior tibial artery. Very poor midfoot distally arterial flow Surgery/Procedure Performed:: Abdominal pelvic right lower extremity arteriogram with selective access into the right anterior tibial artery. Right anterior tibial 3 x 120 mm Jessica cross angioplasty Right anterior tibial sole and distal 4 [place]e AngioJet power pulse 10 mg TPA injection with subsequent 30-minute dwell time and AngioJet thrombectomy with posttreatment 3 x 120 mm Jessica cross angioplasty Left common femoral Perclose closure Description of Surgical Findings:: Timeout and informed consent was obtained. 60-year-old gentleman was taken to the special procedures lab placed on the table. Bilateral groins were sterilely prepped and draped. Throughout the procedure he received a total of 50 mcg of fentanyl and 2 mg of Versed is intravenous sedation. Under ultrasound guidance the left common femoral artery was identified 2% lidocaine was instilled under ultrasound guidance. Under ultrasound guidance micropuncture needle was inserted micropuncture wire inserted micropuncture sheath inserted an 035 J-wire was inserted a 5 Senegalese short sheath dilator was inserted and using a 035 Glidewire 5 [place]e universal flush catheter was placed into the abdominal aorta. Using Visipaque contrast to be aortogram was obtained then using the Omni Flush access was gained to the right common femoral artery. Static views of the right lower extremity were obtained. Having achieved this I exchanged out for an 035 Magic wire and remove the 5 [place]eg[place]e sheath and placed a 7 [place]e destination sheath. At this point the patient received 10,000 units of heparin IV. Weight-based and based upon ACT measurements and aliquots he received an additional 4000 units of heparin totaling 14,000 units for the procedure. Using an 035 angled Glidewire and the 035 quick cross catheter I was able to get through the area of occlusion in the distal third of the right anterior tibial artery. I placed the wire just at the ankle mortise. I then placed a 3 x 120 mm Jessica cross balloon and perform balloon angioplasty distally. Follow-up im ages demonstrated absolutely no improvement. Findings suggested very poor flow in the forefoot and distally to the digits. At that point I elected to use TPA and I placed a banquet pilot 150 wire to the ankle inserted a sole and distal AngioJet and throughout the areas of involvement of the right anterior tibial power pulsed spray a total of 10 mg of TPA. 30-minute dwell time was allowed. I then performed thrombectomy to a total of 284 cc of fluid. I then repeated this 3 x 120 mm then across angioplasty both proximally and distally in the right anterior tibial artery. Completion views were obtained demonstrating seemingly some degree of improvement distally. There is still seem to be some high-grade occlusion distally in the anterior tibial and the seeming area of chronic dissection in the proximal anterior tibial remained constant. Symptomatically however the patient was unchanged from previous intervention. Interestingly he had no increase in his pain throughout the entire procedure. He did have some mild discomfort during the from the ectomy portion of the AngioJet but that did not require any change in medication. At the completion of the procedure a very faint anterior tibial Doppler signal could be detected at the ankle. This was not present previously. I elected to cease the procedure. Devices were removed through the left groin and a single Perclose device was placed with hemostasis achieved. Although the patient has mild anemia and has recently undergone an upper and lower endoscopy trying to evaluate for the source of anemia and none was found other than what appeared to be a degree of thrombosed internal hemorrhoid I will elect to place him on low-dose aspirin therapy and 2.5 mg of rivaroxaban twice daily while awaiting and achieving a tertiary level consultation Imaging demonstrates a widely patent abdominal aorta bilateral common iliacs bilateral internal iliacs. The right common femoral profunda are widely patent. The right superficial femoral is patent as is the popliteal. The right posterior tibial and peroneal appear occluded. There is a collateral flow down the medial aspect of the left lower extremity. The anterior tibial appears to have a chronic dissection at its origin. Distally there is evidence of occlusion with a meniscus sign. The forefoot has very poor flow and there is essentially no distal digital low identified on films. Subsequent to the endovascular intervention there appears to be better flow in general throughout the right anterior tibial though with concerns about ongoing persistent short segment occlusion of the distal right anterior tibial versus high-grade stenosis. Total contrast used 75 cc. Zafar Armstrong M.D., F.A.C.S. Surgeon: Zafar Armstrong Type of Anesthesia: IV Sedation and Local
== END 2021-01-25 15:56 | disposition home or self-care (01) ==
PROVIDERS: PCP Student in an Organized Health Care Education/Training Program; Referring Provider Surgery; Visit Provider Surgery
DX: I75.021 Atheroembolism of right lower extremity (principal); I73.9 Peripheral vascular disease, unspecified; K21.9 Gastro-esophageal reflux disease without esophagitis
CPT/HCPCS: 36200; 36245; 37184; 37211; 37228; 75625; 75710; 76937; 99152; 99153; J2997; J7030; J7040; Q9967; C1725; C1757; C1760; C1769; C1887; C1894; J3490

== ENCOUNTER → 2021-01-26 16:23 | Outpatient (CLI) | payer BC, OTHER, SELFPAY ==
[2021-01-26 17:11] LABS: Hematocrit 31.3 % (40-54); Mean Corp Hgb Conc 28.8 g/dL (32-36); Mean Corpuscular Hgb 19.4 pg (27.0-32.0); Mean Corpuscular Volume 67.5 fL (80-94); Mean Platelet Vol. 9.6 fl (6.2-12.0); POSITIVE MORPHOLOGY YES; Platelet Count 251 K/mm3 (150-450); RBC Distribution Width CV 22.1 % (11.6-14.6); RBC Distribution Width SD 52.9 fl (35.1-43.9); Red Blood Count 4.64 M/mm3 (4.6-6.2); White Blood Count 4.9 K/mm3 (4.4-11.0)
[2021-01-26 17:29] LABS: Scan Indicated on CBC? Y/N YES- FLAGS NOTED
[2021-01-26 18:01] LABS: Differential Comment SCANNED
[2021-01-26 18:13] LABS: Anion Gap 6 (5-15); BUN 12 mg/dL (7-18); BUN/Creat Ratio 11.2 RATIO (10-20); Calcium,Total 8.7 mg/dL (8.5-10.1); Chloride 104 mmol/L (98-107); Creatinine, Serum 1.07 mg/dL (0.70-1.30); EST Glomerular Filtration Rate 74 mL/min (>60); Est Glom Filt Rate - Afr Amer 90 mL/min (>60); Glucose 95 mg/dL (74-106); Potassium 3.8 mmol/L (3.5-5.1); Sodium Level 138 mmol/L (136-145)
== END ==
PROVIDERS: PCP Student in an Organized Health Care Education/Training Program; Visit Provider Surgery
DX: I74.3 Embolism and thrombosis of arteries of the lower extremities (principal); D64.9 Anemia, unspecified
CPT/HCPCS: 36415; 80048; 85027

== ENCOUNTER → 2021-01-29 09:01 | Outpatient (CLI) | payer BC, OTHER, SELFPAY ==
--- NOTE | 2021-01-29 09:02 | AAVD_ITS ---
Reason For Study: Claudication Aorta Measurements Aorta Doppler Measurements Proximal aorta measures2.08 x 2.09cm. in cross- Peak systolic flow velocities within the proximal sectional axis. aorta measure 71 cm/sec. Proximal aorta measures2.07cm. in longitudinal Peak systolic flow velocities within the mid aorta axis. measure 75.4 cm/sec. Mid aorta measures1.68 x 1.65cm. in cross- Peak systolic flow velocities within the distal sectional axis. aorta measure 63.3 cm/sec. Mid aorta measures1.65cm. in longitudinal axis. Distal aorta measures1.87 x 1.87cm. in cross- sectional axis. Distal aorta measures1.84cm. in longitudinal axis. Left Iliac Artery Left iliac artery measures 1.19 x 1.19 cm. in the cross-sectional axis. Left iliac artery measures 1.15 cm. in the longitudinal axis. Peak systolic velocity in the left iliac artery measures 119.8 cm/sec. Right Iliac Artery Right iliac artery measures 1.22 x 1.21 cm. in the cross-sectional axis. Right iliac artery measures 1.21 cm. in the longitudinal axis. Peak systolic velocity in the right iliac artery measures 65.8 cm/sec. Procedure Aorta IVC Iliac vasculature or bypass grafts 11336. Exam performed in department. VL/Abd Aortic/IVC Duplex scan Interpretation Summary Maximal aortic diameter proximally at 2.08 x 2.09 cm. Normal flow velocity noted throughout the abdominal aorta without significant p laque. Left common iliac 1.19 x 1.19 cm. Right common neck 1.22 x 1.21 cm Ordering Physician: Zafar Armstrong Referring Physician: Judah Castaneda Performed By: Daisy Churchill RVT
== END ==
PROVIDERS: PCP Student in an Organized Health Care Education/Training Program; Referring Provider Surgery; Visit Provider Surgery
DX: I74.3 Embolism and thrombosis of arteries of the lower extremities (principal); I73.9 Peripheral vascular disease, unspecified
CPT/HCPCS: 93978

== ENCOUNTER → 2022-01-11 | Outpatient (CLI) | payer BC, OTHER, SELFPAY ==
--- NOTE | 2022-01-11 08:41 | ART_ITS ---
Reason For Study: Claudication Procedure A bilateral lower extremity continuous wave Doppler with analog waveform analysis,segmental pressures,and ankle brachial indexes with exercise. Left Segmental Pressures Left brachial= 142mmHg. Left posterior tibial artery = 157mmHg. Left dorsalis pedis artery = 163mmHg. The left dorsalis pedis waveforms are triphasic. The left posterior tibial artery waveforms are biphasic. Right Segmental Pressures Right brachial= 137mmHg. Right thigh = 171mmHg. Right calf = 132mmHg. Right posterior tibial artery = 88mmHg. Right dorsalis pedis artery = 102mmHg. Right digit = 50 mmHg. The right dorsalis pedis waveforms are biphasic. The right posterior tibial artery waveforms are biphasic. Indices The right ankle brachial index by the dorsalis pedis is 0.72. The right ankle brachial index by the posterior tibial artery is 0.62. The right digital-brachial index is 0.35. The right post exercise ankle brachial index is 0.78. The left ankle brachial index by the dorsalis pedis is 1.15. The left ankle brachial index by the posterior tibial artery is 1.11. The left digital-brachial index is 0.95. The left post exercise ankle brachial index is 1.13. VL/Lower Ext Art Exam w/ Exercise Interpretation Summary Right RITO 0.72, moderate arterial insufficiency. Doppler/PVR waveforms and segm ental pressures reveal distal SFA/popliteal, infrapopltieal disease Right lower extremity exhibits no change in response to exercise. Left RITO 1.15, normal. TBI and Doppler/PVR waveforms of the left leg normal at rest. Left lower extremity exhibits normal response to exercise. Ordering Physician: Gab Mitchell Referring Physician: Judah Castaneda Performed By: Daisy Churchill RVT
== END | disposition home or self-care (01) ==
LOC: CVS 08:40
PROVIDERS: PCP Student in an Organized Health Care Education/Training Program; Referring Provider Surgery Trauma Surgery; Visit Provider Surgery Trauma Surgery
DX: I73.9 Peripheral vascular disease, unspecified (principal)
CPT/HCPCS: 93924

== ENCOUNTER → 2022-07-05 | Outpatient (CLI) | payer BC, OTHER, SELFPAY ==
--- NOTE | 2022-07-05 09:00 | RAD_ITS ---
STUDY: X-RAY - ESOPHAGUS (BARIUM SWALLOW) WITH FLUOROSCOPY REASON FOR EXAM: Male, 61 years old. EOSINOPHILIC ESOPHAGITIS TECHNIQUE: 16 view(s) of the esophagus were obtained following swallowing of barium. FLUOROSCOPY TIME (if supplied): (45 seconds) minutes/seconds. 14.03 mGy COMPARISON: Comparison is made with prior examination May 27, 2019. FINDINGS: There is no demonstrated esophageal foreign body. There is no demonstrated stricture or mucosal abnormality. Normal gastroesophageal junction, without a demonstrated hiatal hernia. The patient ingested a 12 mm tablet at bedtime. The tablet is trapped in the proximal esophagus. There is atherosclerotic calcification of the aortic arch with tortuosity of the descending aorta. Normal visualized pulmonary parenchyma. Normal visualized osseous structures of the thorax. RAD/Esophagus Dual Contrast IMPRESSION: The patient ingested a 12 mm tablet of barium. The tablet is trapped in the proximal esophagus. This is unchanged as compared to prior study. Electronically Signed: Uriah Wick MD at 15:41 EDT ,
== END | disposition home or self-care (01) ==
LOC: RAD 08:41
PROVIDERS: PCP Student in an Organized Health Care Education/Training Program; Referring Provider Internal Medicine Gastroenterology; Visit Provider Internal Medicine Gastroenterology
DX: K22.2 Esophageal obstruction (principal); I73.9 Peripheral vascular disease, unspecified; K20.0 Eosinophilic esophagitis
CPT/HCPCS: 74220; 74221

== ENCOUNTER → 2023-04-10 | Outpatient (CLI) | payer BC, OTHER, SELFPAY ==
--- NOTE | 2023-04-10 08:00 | ART_ITS ---
Reason For Study: CLAUDICATION Procedure A bilateral lower extremity continuous wave Doppler with analog waveform analysis,segmental pressures,and ankle brachial indexes with exercise. PT walked for 5 minutes @ 2.5 MPH with no complaints, no pain. Left Segmental Pressures Left brachial= 151mmHg. Left posterior tibial artery = 159mmHg. Left dorsalis pedis artery = 176mmHg. The left posterior tibial artery waveforms are monophasic. The left dorsalis pedis waveforms are triphasic. Right Segmental Pressures Right brachial= 150mmHg. Right posterior tibial artery = 164mmHg. Right dorsalis pedis artery = 167mmHg. The right posterior tibial artery waveforms are monophasic. The right dorsalis pedis waveforms are triphasic. Indices The right resting ankle brachial index is 1.11. The right ankle brachial index by the posterior tibial artery is 1.09. The right ankle brachial index by the dorsalis pedis is 1.11. The right ankle brachial index by the dorsalis pedis post exercise is 1.11. The left resting ankle brachial index is 1.17. The left ankle brachial index by the posterior tibial artery is 1.05. The left ankle brachial index by the dorsalis pedis is 1.17. The left dorsalis pedis index post exercise is 1.19. VL/Lower Ext Art Exam w/ Exercise Interpretation Summary Right RITO 1.11, normal. Doppler/PVR waveforms of the right leg normal at rest. Right lower extremity exhibits normal response to exercise. Left RITO 1.17, normal. Doppler/PVR waveforms of the left leg normal at rest. Left lower extremity exhibits normal response to exercise. Ordering Physician: Lita Rios Referring Physician: Judah Castaneda Performed By: Cyn Low RVT, RDCS
== END | disposition home or self-care (01) ==
LOC: CVS 07:59
PROVIDERS: PCP Student in an Organized Health Care Education/Training Program; Referring Provider Physician Assistant; Visit Provider Physician Assistant
DX: I73.9 Peripheral vascular disease, unspecified (principal)
CPT/HCPCS: 93924

== ENCOUNTER 2023-06-23 06:01 | Day surgery (SDC) | payer BC, OTHER, SELFPAY ==
[2023-06-23 06:27] VITALS: BP 157/96; PULSE 82; RESP 16; TEMP 36.2; O2SAT 99; BMI 28.4
--- NOTE | 2023-06-23 07:28 | DCINST_ITS ---
Discharge Instructions Diet Discharge Diet: Light diet - advance as tolerated Activity Weight Bearing Status: Partial weight bearing (Limiting weight on right foot) Keep extremity elevated above heart level: Right Leg (Keep right foot elevated) Dressing / Incision Call your doctor if your incision/area has: Continuous Slow Oozing, Sudden Increased Bleeding and Foul Smelling Discharge Call your doctor if you observe: Fever of 101 or Higher, Shortness of breath, Chest pain, Increased palpitations (irregular heartbeat), Calf discomfort and Uncontrolled pain Change Dressing in: 1 day (Right foot - change dressing daily - cleanse with normal soap and water, apply overlying bandage) Cleanse incision/area with: Soap & Water Follow Up Care Please Follow Up With: Royer Barahona DPM When: 1 week, sooner if needed Test Results: Test results from this visit will be discussed in further detail at your follow- up appointment, if applicable. Discharge Plan Admission Attending Provider: Royer Barahona Primary Care Provider: Judah Castaneda Discharge Orders/Prescriptions Prescriptions: New hydrocodone-acetaminophen 5-300 mg tablet 1 tab PO Q6H PRN (Reason: pain) 3 Days Qty: 10 0RF No Action pantoprazole 40 mg tablet,delayed release (DR/EC) 40 mg PO DAILY aspirin [Adult Aspirin Regimen] 81 mg tablet,delayed release (DR/EC) 81 mg PO DAILY krill oil 500 mg capsule 500 mg PO DAILY cholecalciferol (vitamin D3) [Vitamin D3] 25 mcg (1,000 unit) capsule 25 mcg PO DAILY Slow Fe 137 mg (45 mg iron) tablet extended release 137 mg PO DAILY Patient Comments: TAKE 1 TABLET BY MOUTH EVERY DAY Referrals / Follow Up: Judah Castaneda DO [Primary Care Provider] - Disposition Disposition (needs filled in before D/C Order can be placed): Home, Self Care
--- NOTE | 2023-06-23 07:30 | RAD_ITS ---
INDICATION: Foreign body removal EXAMINATION/TECHNIQUE: X-RAY - RIGHT XR Foot 2 Views COMPARISON: None. FINDINGS/ RAD/Foot 2 Views IMPRESSION: Fluoroscopic support was provided during foreign body removal of right foot. 5 minutes and 42 seconds of fluoroscopy time was used. Radiation dose 3.30 mGy (air kerma). Radiation dose 55.5 mGym2 (dose area product). 2 images received. Please refer to operative note for further details. Electronically Signed: Patricio Fitch MD at 3:10 EDT ,
--- NOTE | 2023-06-23 07:30 | FORE_PTH ---
PATIENT: AMANDA HEWITT Jr. LOC: [facility] [place] U#:[id number] AGE/SX: 62/M ROOM: RE06/23/[address]: Dr. Royer Barahona DPM : 1960 BED: DIS: 06/23/2023 SPEC #: [id number] RECD: 06/23/23 11:08 STATUS: ANAHY MILADY #: [id number] DALIA: 06/23/23 07:[address]: Royer Barahona DEPT: SURGICAL PATHOLOGY RECD BY: Lexie Kovacs ENTERED: 06/23/23 12:21 SP TYPE: FOREIGN B OTHR DR: Dr. Judah Castaneda, DO Tissues: FOREIGN BODY Procedures: Surgery Specimen Level I Surgery Specimen Level IV HEADER OPERATION: Removal of right foot foreign body PRE-OP DIAGNOSIS: Foreign body right foot TISSUE SUBMITTED: Foreign body right foot MICROSCOPIC DIAGNOSIS Skin of soft tissue of right foot, biopsy: Skin with hyperkeratosis and mild dermal chronic inflammation. Mild chronic inflammation of fibrofatty tissue. Unremarkable metallic wire (gross diagnosis only). / 06/26/23 MICROSCOPIC DESCRIPTION Slides are reviewed. GROSS DESCRIPTION Received in fixative is one container labeled with the patient's name and designated Foreign body right foot. The specimen consists of a piece of kay soft tissue measuring 1.0 x 0.5 x 0.3cm. A thin wire is noted in this piece measuring 0.7cm in length and <0.1cm in diameter. Also present in the container is a piece of kay white skin measuring 1.0 x 0.5 x 0.3cm. The wire is for gross identification only. The rest of this specimen is submitted in one cassette. / 06/23/23 TC:3 CPT: 90975,97769
[2023-06-23 07:47] VITALS: BP 122/80; BP 125/88; BP 140/81; BP 140/89; BP 141/88; BP 144/84; BP 147/79; BP 147/92; BP 152/85; O2SAT 96; O2SAT 97; O2SAT 98; O2SAT 99
[2023-06-23] MEDS: Lidocaine 1% /Epi 1:100 (20ml) 20 ML Vial (07:48)
--- NOTE | 2023-06-23 08:17 | OP.PCM_ITS ---
Report of Operation Date of Procedure: 06/23/23 Pre-Operative Diagnosis: Foreign body right foot Post-Operative Diagnosis: Same Surgery/Procedure Performed:: Removal of foreign body from right foot Surgeon: Royer Barahona twisting frame operator: Type of Anesthesia: Local Specimen's removed: Foreign body right foot - sent to pathology Estimated Blood Loss (mL): 1mL Description of Procedure: Indications: 62 year old gentleman with piece of wire foreign body to the plantar right foot which does cause pain and a callus. The foreign body can be seen on xrays to the plantar lateral forefoot. We discussed the options and he elected to proceed with removal of the foreign body. Reviewed procedure, possible benefits vs risks, goals, expectations and estimated healing/recovery time. The consent form was reviewed and freely signed. Operative Procedure: He was brought to the operating room and placed on the operating room table in the supine position. A safety belt was placed around his waist to carefully secure him to the operating room table. A time out was preformed and he was properly identified and the surgical plan was confirmed. After the overlying skin was cleansed with 70% Isopropyl alcohol a total of 16mL of 1% Lidocaine with 1:100,000 epi was given as a local nerve block around the foreign body right foot. The right foot was scrubbed, prepped, and draped in the usual aseptic fashion. Further attention was directed to the right foot and where was noted to be a small callus skin lesion to the plantar lateral forefoot proximally. The skin lesion was excised using a 15 blade - full thickness and passed from the surgical site. Careful dissection was completed down to the foreign body and using intraoperative fluoroscopy the foreign body was identified and was removed in toto using a hemostat. It was noted the foreign body was adhered to small amount of surrounding subcutaneous tissue, and the foreign body was metallic and appeared to be a small wire. The excised foreign body and skin lesion were sent together to pathology. Intra operative fluoroscopy was used and no further foreign body was noted. The site was flushed with copious amounts of normal saline solution. The remaining tissues appeared healthy and viable. The skin was reapproximated using 3-0 Nylon. A dressing was applied which consisted of Betadine soaked adaptic, 4x4 gauze, Kerlix and pawan dressing. He tolerated the procedure well and anesthesia well with no complications. He was transported from the operating room to the recovery room with vital signs stable and in good condition. Post operative orders were placed, and post operating instructions were reviewed with him. He is going to follow up next week in office, sooner if needed. Grafts/Implants Used: None Complications None
[2023-06-23 08:40] VITALS: BP 126/75; BP 157/96; PULSE 75; RESP 18; O2SAT 97
== END 2023-06-23 08:43 | disposition home or self-care (01) ==
LOC: SDC 06:03 → AC 06:04
PROVIDERS: PCP Student in an Organized Health Care Education/Training Program; Referring Provider Podiatrist; Visit Provider Podiatrist
PROC: (CPT 28190; principal; 2023-06-23 07:15)
DX: S90.851A Superficial foreign body, right foot, initial encounter (principal); M79.671 Pain in right foot; D50.8 Other iron deficiency anemias; W45.8XXA Other foreign body or object entering through skin, initial encounter
CPT/HCPCS: 28190; 73620; 76000; 88300; 88305; J7120

== ENCOUNTER → 2023-11-07 | Outpatient (CLI) | payer OTHER, MEDICARE, SELFPAY ==
--- NOTE | 2023-11-07 14:52 | ART_ITS ---
Reason For Study: PVD Procedure A bilateral lower extremity continuous wave Doppler with analog waveform analysis,segmental pressures,and ankle brachial indexes with exercise. PT walked for 5 min, @ 2.5 MPH @ 5% incline. PT experienced NO SYMPTOMS. Left Segmental Pressures Left brachial= 139mmHg. Left posterior tibial artery = 131mmHg. Left dorsalis pedis artery = 150mmHg. The left posterior tibial artery waveforms are triphasic. The left dorsalis pedis waveforms are triphasic. Right Segmental Pressures Right brachial= 130mmHg. Right posterior tibial artery = 97mmHg. Right dorsalis pedis artery = 153mmHg. The right posterior tibial artery waveforms are biphasic. The right dorsalis pedis waveforms are biphasic. Indices The right resting ankle brachial index is 1.10. The right ankle brachial index by the posterior tibial artery is 0.70. The right ankle brachial index by the dorsalis pedis is 1.10. The right ankle brachial index by the dorsalis pedis post exercise is 0.98. The left resting ankle brachial index is 1.08. The left ankle brachial index by the posterior tibial artery is 0.94. The left ankle brachial index by the dorsalis pedis is 1.08. The left dorsalis pedis index post exercise is 1.11. VL/Lower Ext Art Exam w/ Exercise Interpretation Summary Right RITO 1.1, normal. Doppler/PVR waveforms of the right leg normal at rest. Right lower extremity exhibits normal response to exercise. Left RITO 1.08, normal. Doppler/PVR waveforms of the left leg normal at rest. Left lower extremity exhibits normal response to exercise. Ordering Physician: Lita Rios Referring Physician: Judah Castaneda Performed By: Cyn Low RVT, RDCS
== END | disposition home or self-care (01) ==
PROVIDERS: PCP Student in an Organized Health Care Education/Training Program; Referring Provider Physician Assistant; Visit Provider Physician Assistant
DX: I73.9 Peripheral vascular disease, unspecified (principal)
CPT/HCPCS: 93924

== ENCOUNTER → 2023-12-04 | Outpatient (CLI) | payer OTHER, SELFPAY ==
--- NOTE | 2023-12-04 12:12 | STRESSREP_ITS ---
Stress Test Report Date: 12/04/2023 Procedure: Pharmacologic stress nuclear imaging study Indications: Abnormal ECG Consent: Per the patient Procedure: The patient underwent pharmacologic (Regadenoson 0.4mg ) evaluation with a peak heart rate of 99 beats per minute (63%predicted maximal heart rate) and a peak blood pressure of 164/102 mmHg. The baseline ECG demonstrated sinus rhythm with left bundle branch block. The peak pharmacologic ECG demonstrated no diagnostic changes secondary to baseline abnormality. There were no cardiac dysrhythmias pretest, during pharmacologic infusion, or recovery. There was no complaint of chest discomfort during pharmacologic infusion or recovery. The patient was injected with 14.3 millicuries of technetium 99m Cardiolite and subsequently rest SPECT Cardiolite nuclear imaging was obtained in the horizontal long, vertical long, and short axis views. The patient underwent pharmacologic (Regadenoson) evaluation. The patient was injected with 44.8 millicuries of technetium 99m Cardiolite and subsequently stress SPECT Cardiolite nuclear imaging was obtained in the horizontal long, vertical long, and short axis views. A gated Cardiolite study at peak stress was obtained. The examination was stopped secondary to completion of protocol. Rest and stress SPECT Cardiolite nuclear imaging status post realignment, normalization, and attenuation correction demonstrate reduced uptake in the septum which is slightly worse post pharmacological stress. The gated Cardiolite study demonstrates myocardial thickening and inward wall motion. The reported LVEF is 49%. Impression: 1. Pharmacologic (Regadenoson) evaluation 2. Peak pharmacologic ECG with no diagnostic changes. 3. There were no cardiac dysrhythmias pretest, during pharmacologic infusion, or recovery. 5. Reduced perfusion of the septum both at rest as well as post pharmacological stress. Mildly worse post stress. This could denote ischemia however left bundle branch block could cause false positive results. Recommend clinical correlation. Recommend coronary CT angio for further evaluation. 6. The gated Cardiolite study reports an LVEF of 49%. This note was generated with [employer] software. It may contain incorrect words, spelling, and punctuation that were not noted in checking the note before signing.
== END | disposition home or self-care (01) ==
LOC: CVS 06:10
PROVIDERS: PCP Student in an Organized Health Care Education/Training Program; Referring Provider Nurse Practitioner Family; Visit Provider Nurse Practitioner Family
DX: R00.1 Bradycardia, unspecified (principal); R06.02 Shortness of breath; R42 Dizziness and giddiness; R94.31 Abnormal electrocardiogram [ECG] [EKG]; I45.4 Nonspecific intraventricular block
CPT/HCPCS: 78452; 93017; A9500; A4216; J2785